=== PATIENT | female | born 1955 | race Asian ===

== ENCOUNTER 2016-08-26 18:50 | Observation (INO) | payer OTHER ==
[~2016-08-26] VITALS: Ht 152.4 cm; Wt 160.2 kg
[2016-08-26 21:59] LABS: PLATELET COUNT 209 K/uL (152-353)
[2016-08-26 22:09] VITALS: BP 195/95; TEMP 99.2; Ht 152.4 cm; Wt 160.2 kg
[2016-08-26 22:20] LABS: POTASSIUM 3.5 mmol/L (3.6-5.2); SODIUM 139 mmol/L (136-145)
[2016-08-27 00:21] VITALS: BP 119/70; TEMP 98.3
[2016-08-27 04:00] VITALS: BP 92/65; TEMP 98.5
[2016-08-27 08:06] VITALS: BP 131/68; TEMP 98.1
[2016-08-27 09:10] LABS: PLATELET COUNT 209 K/uL (152-353)
[2016-08-27 09:38] LABS: POTASSIUM 3.7 mmol/L (3.6-5.2); SODIUM 139 mmol/L (136-145)
[2016-08-27 12:00] VITALS: BP 141/92; TEMP 98.1
[2016-08-27 16:00] VITALS: BP 186/98; TEMP 98.3
[2016-08-27 20:17] VITALS: BP 183/99; TEMP 98.4
[2016-08-28] VITALS: BP 123/72; TEMP 98.2
[2016-08-28 04:00] VITALS: BP 121/72; TEMP 98
[2016-08-28 04:59] LABS: PLATELET COUNT 200 K/uL (152-353)
[2016-08-28 05:09] LABS: POTASSIUM 3.9 mmol/L (3.6-5.2); SODIUM 141 mmol/L (136-145)
[2016-08-28 08:00] VITALS: BP 156/90; TEMP 98.2
[2016-08-28 12:00] VITALS: BP 162/88; TEMP 98.4
== END 2016-08-28 13:55 | disposition home or self-care (01) ==
LOC: MED/SURG 18:50
PROVIDERS: Internal Medicine
DX: M48.06 Spinal stenosis, lumbar region (principal); R20.8 Other disturbances of skin sensation; R53.1 Weakness; N39.498 Other specified urinary incontinence; D57.3 Sickle-cell trait; I10 Essential (primary) hypertension; M15.8 Other polyosteoarthritis; K21.9 Gastro-esophageal reflux disease without esophagitis; R06.02 Shortness of breath
CPT/HCPCS: 36415; 36591; 51702; 80048; 80053; 81000; 84436; 84443; 85027; 86039; 86141; 86430; 87205; 87328; 87329; 99220; G0378; G0379; J2405

== ENCOUNTER 2016-11-19 10:04 | Outpatient (CLI) | payer OTHER ==
[2016-11-19 10:33] LABS: PLATELET COUNT 215 K/uL (152-353)
[2016-11-19 12:04] LABS: POTASSIUM 3.8 mmol/L (3.6-5.2); SODIUM 138 mmol/L (136-145)
== END 2016-11-19 19:08 | disposition home or self-care (01) ==
LOC: LABW 10:04
PROVIDERS: Nurse Practitioner
DX: I10 Essential (primary) hypertension (principal); E78.4 Other hyperlipidemia; R60.0 Localized edema; Z79.899 Other long term (current) drug therapy; Z51.81 Encounter for therapeutic drug level monitoring
CPT/HCPCS: 36415; 80053; 80061; 83036; 85027; 85651; 86039

== ENCOUNTER 2018-08-21 14:16 | Outpatient (CLI) | payer OTHER | END 2018-08-21 19:56 | disposition home or self-care (01) | LOC: MAMMO 14:16 | DX: Z12.31 Encounter for screening mammogram for malignant neoplasm of breast (principal) ==

== ENCOUNTER 2022-09-05 13:10 | Outpatient (CLI) | payer OTHER | END 2022-09-05 19:07 | disposition home or self-care (01) | LOC: MAMMO 13:10 | PROVIDERS: ATTEND Family Medicine | DX: Z12.31 Encounter for screening mammogram for malignant neoplasm of breast (principal); Z13.820 Encounter for screening for osteoporosis; N95.8 Other specified menopausal and perimenopausal disorders ==

== ENCOUNTER 2022-10-02 12:08 | Outpatient (CLI) | payer OTHER | END 2022-10-02 19:12 | disposition home or self-care (01) | LOC: MAMMO 12:08 | PROVIDERS: ATTEND Specialist | DX: R92.8 Other abnormal and inconclusive findings on diagnostic imaging of breast (principal); N63.0 Unspecified lump in unspecified breast; Z78.0 Asymptomatic menopausal state; Z68.42 Body mass index [BMI] 45.0-49.9, adult ==

== ENCOUNTER 2023-01-15 08:56 | Outpatient (CLI) | payer OTHER ==
[2023-01-15 09:32] LABS: PLATELET COUNT 207 K/uL (152-353)
[2023-01-15 09:56] LABS: POTASSIUM 3.6 mmol/L (3.6-5.2); SODIUM 141 mmol/L (136-145)
== END 2023-01-15 18:56 | disposition home or self-care (01) ==
LOC: LABW 08:56
PROVIDERS: ATTEND Family Medicine
DX: J44.9 Chronic obstructive pulmonary disease, unspecified (principal); I10 Essential (primary) hypertension; I63.9 Cerebral infarction, unspecified; E11.9 Type 2 diabetes mellitus without complications; E78.00 Pure hypercholesterolemia, unspecified; M19.90 Unspecified osteoarthritis, unspecified site; J45.909 Unspecified asthma, uncomplicated
CPT/HCPCS: 36415; 80053; 80061; 81002; 83036; 84439; 84443; 84550; 85027